=== PATIENT | female | born 1980 | race Caucasian/White ===

== ENCOUNTER 2022-06-01 13:22 | Outpatient (CLI) | payer BC ==
[~2022-06-01 13:22] MED LIST: Magnevist 469MG/ML 20 ML VIAL ONE
== END 2022-06-01 13:23 | disposition home or self-care (01) ==
LOC: CSHMRI 13:22
PROVIDERS: ATTEND Family Medicine
DX: M54.6 Pain in thoracic spine (principal); M47.814 Spondylosis without myelopathy or radiculopathy, thoracic region
CPT/HCPCS: 72157

== ENCOUNTER 2022-06-02 13:47 | Outpatient (CLI) | payer BC | END 2022-06-02 13:48 | disposition home or self-care (01) | LOC: CSHMAMMO 13:47 | PROVIDERS: ATTEND Obstetrics & Gynecology | DX: Z12.31 Encounter for screening mammogram for malignant neoplasm of breast (principal) | CPT/HCPCS: 77063; 77067 ==

== ENCOUNTER 2024-07-09 13:38 | Outpatient (CLI) | payer BC | END 2024-07-09 13:39 | disposition home or self-care (01) | LOC: CSHMAMMO 13:38 | PROVIDERS: ATTEND Obstetrics & Gynecology | DX: Z12.31 Encounter for screening mammogram for malignant neoplasm of breast (principal) | CPT/HCPCS: 77063; 77067 ==